=== PATIENT | female | born 1940 | race Caucasian/White ===

== ENCOUNTER 2017-05-25 19:06 | Emergency (ER) | payer MEDICARE, OTHER ==
[~2017-05-25] VITALS: Ht 170.2 cm; Wt 60.0 kg
[2017-05-25 19:14] VITALS: BP 184/85; PULSE 82; RESP 18; TEMP 98.3; O2SAT 96
[2017-05-25] MEDS ORDERED: SODIUM CHLOR 0.9% 1000 ML INJ 1,000 ML IV ONE (19:19)
[2017-05-25] MEDS ORDERED: LEVO.05 PO (19:20)
[2017-05-25] MEDS ORDERED: LISI10TA3 PO (19:20)
[2017-05-25 19:21] VITALS: RESP 18; O2SAT 96
[2017-05-25] MEDS ORDERED: SODIUM CHLORIDE 0.9% FLUSH 10 ML FLUSH IVF PRN (19:30)
--- NOTE | 2017-05-25 19:40 | PD ---
HPI Chief Complaint: Fall Time Seen by Provider: 19:14 Travel History International Travel<30 days: No Contact w/Intl Traveler<30days: No Traveled to known affect area: No History of Present Illness HPI 76-year-old female presents the emergency department status post trip and fall with abrasion and mild contusion to the forehead with no acute loss of consciousness, followed by an episode of syncope several minutes later after the patient tried to get up. Patient was brought in by ambulance with c-collar on. She is alert and oriented 3. She is not complaining of headache, dizziness, or other symptoms at this time. EKG and readings in the ambulance showed 1 PVC, and our EKG here showed an incomplete right bundle branch block and left anterior fascicular block. Patient denies previous cardiac history. Patient denies chest pain or shortness of breath at this time. Patient states she's had similar episodes in the past after falling and hitting her head with secondary syncope several minutes later. She has a history of vasovagal syncope in the past by her own report. Patient has not been seen here at [facility] prior to this visit. Patient states she takes thyroid medication and lisinopril. She is allergic to sulfa. [facility] Past Medical History Hypertension: Yes Thyroid Disease: Yes Tetanus Vaccination: > 5 Years Influenza Vaccination: Yes ?: Not Past Surgical History Endocrine Surgery: Yes (PARTIAL THYROIDECTOMY) Social History Alcohol Use: No Tobacco Use: No Substance Use: No Allergies-Medications (Allergen,Severity, Reaction): Coded Allergies: Sulfa (Sulfonamide Antibiotics) (Verified Allergy, Unknown, 05/25/17) Reported Meds & Prescriptions Reported Meds & Active Scripts Active Reported Synthroid (Levothyroxine Sodium) 50 Mcg Tab 50 Mcg PO DAILY Lisinopril 10 Mg Tab 10 Mg PO DAILY Review of Systems Except as stated in HPI: all other systems reviewed are Neg General / Constitutional: No: Fever Eyes: No: Visual changes HENT: No: Headaches, Vertigo, Lightheadedness, Sore Throat, Rhinitis, Rhinorrhea, Congestion, Nosebleed, Neck Stiffness, Neck Pain, Dental Difficulties, Ear Discharge, Earache Cardiovascular: Positive: Syncope, No: Chest Pain or Discomfort, Palpitations, Irregular Rhythm, Tachycardia, Diaphoresis, Dyspnea on exertion, Edema Respiratory: No: Shortness of Breath Gastrointestinal: No: Abdominal Pain Genitourinary: No: Dysuria Musculoskeletal: No: Pain Skin: Positive Lesions (abrasions to the forehead), No Rash Neurologic: No: Weakness Psychiatric: No: Depression Endocrine: No: Polydipsia Hematologic/Lymphatic: No: Easy Bruising Physical Exam Narrative GENERAL: Patient is alert and oriented 3. SKIN: Warm and dry. Patient has superficial abrasions and contusion to the central middle forehead and bridge of the nose. No lacerations noted. HEAD: Mild tenderness over the contused area of the forehead otherwise unremarkable EYES: Pupils equal and round. No scleral icterus. No injection or drainage. Normal ocular motions bilaterally. No nystagmus. ENT: No nasal bleeding or discharge. Mucous membranes pink and moist. No dental injury. Pharynx is clear. Airway is patent. NECK: Trachea midline. No bony tenderness or step-off. Range of motion is full and supple although Dr. Dukes recommends CT scan CARDIOVASCULAR: Regular rate and rhythm. No murmurs gallops or rubs appreciated. RESPIRATORY: No accessory muscle use. Clear to auscultation. Breath sounds equal bilaterally. GASTROINTESTINAL: Abdomen soft, non-tender, nondistended. Hepatic and splenic margins not palpable. MUSCULOSKELETAL: Extremities without clubbing, cyanosis, or edema. No obvious deformities. No obvious injuries noted. NEUROLOGICAL: Awake and alert. No obvious cranial nerve deficits. Motor grossly within normal limits. Five out of 5 muscle strength in the arms and legs. Normal speech. PSYCHIATRIC: Appropriate mood and affect; insight and judgment normal. Data Data Last Documented VS Vital Signs Date Time Temp Pulse Resp B/P (MAP) Pulse Ox O2 Delivery O2 Flow Rate FiO2 05/25/17 19:21 18 96 Room Air 05/25/17 19:16 83 05/25/17 19:14 98.3 184/85 (118) Orders Orders Electrocardiogram (05/25/17 19:19) Complete Blood Count With Diff (05/25/17 19:19) Comprehensive Metabolic Panel (05/25/17 19:19) Magnesium (Mg) (05/25/17 19:19) Ckmb (Isoenzyme) Profile (05/25/17 19:19) Troponin I (05/25/17 19:19) Act Partial Throm Time (Ptt) (05/25/17 19:19) Prothrombin Time / Inr (Pt) (05/25/17 19:19) Ct Brain W/O Iv Contrast(Rout) (05/25/17 19:19) Ecg Monitoring (05/25/17 19:19) Iv Access Insert/Monitor (05/25/17 19:19) Oximetry (05/25/17 19:19) Sodium Chloride 0.9% Flush (Ns Flush) (05/25/17 19:30) Sodium Chlor 0.9% 1000 Ml Inj (Ns 1000 M (05/25/17 19:19) Orthostatic Vital Signs (05/25/17 19:19) Ct Cerv Spine W/O Contrast (05/25/17 19:24) CKMB (05/25/17 19:20) CKMB% (05/25/17 19:20) Ed Discharge Order (05/25/17 20:46) Labs Laboratory Tests Test 05/25/17 19:20 White Blood Count 8.0 TH/MM3 Red Blood Count 4.31 MIL/MM3 Hemoglobin 14.0 GM/DL Hematocrit 41.2 % Mean Corpuscular Volume 95.6 FL Mean Corpuscular Hemoglobin 32.6 PG Mean Corpuscular Hemoglobin Concent 34.1 % Red Cell Distribution Width 12.5 % Platelet Count 244 TH/MM3 Mean Platelet Volume 8.2 FL Neutrophils (%) (Auto) 63.2 % Lymphocytes (%) (Auto) 27.8 % Monocytes (%) (Auto) 5.8 % Eosinophils (%) (Auto) 2.9 % Basophils (%) (Auto) 0.3 % Neutrophils # (Auto) 5.1 TH/MM3 Lymphocytes # (Auto) 2.2 TH/MM3 Monocytes # (Auto) 0.5 TH/MM3 Eosinophils # (Auto) 0.2 TH/MM3 Basophils # (Auto) 0.0 TH/MM3 CBC Comment DIFF FINAL Differential Comment Prothrombin Time 10.9 SEC Prothromb Time International Ratio 1.0 RATIO Activated Partial Thromboplast Time 25.0 SEC Blood Urea Nitrogen 13 MG/DL Creatinine 0.67 MG/DL Random Glucose 127 MG/DL Total Protein 6.6 GM/DL Albumin 3.6 GM/DL Calcium Level 9.2 MG/DL Magnesium Level 1.9 MG/DL Alkaline Phosphatase 53 U/L Aspartate Amino Transf (AST/SGOT) 26 U/L Alanine Aminotransferase (ALT/SGPT) 22 U/L Total Bilirubin 0.3 MG/DL Sodium Level 139 MEQ/L Potassium Level 3.5 MEQ/L Chloride Level 106 MEQ/L Carbon Dioxide Level 25.1 MEQ/L Anion Gap 8 MEQ/L Estimat Glomerular Filtration Rate 86 ML/MIN Total Creatine Kinase 140 U/L Creatine Kinase MB 5.0 NG/ML Troponin I 0.02 NG/ML MDM Medical Decision Making Medical Screen Exam Complete: Yes Emergency Medical Condition: Yes Differential Diagnosis Trip and fall. Contusion. Vasovagal syncope. Intracranial bleed. Possible new EKG changes. Electrolyte imbalance. Head injury. Concussion syndrome Narrative Course Patient is medically stable at time of exam. CT scan of the head and neck are ordered. Labs ordered including CBC, CMP, cardiac panel, urinalysis. IV access is obtained patient is given 1000 mL of normal saline bolus. Orthostatic vital signs are ordered. Head CT and neck CT are both negative for acute process per radiologist. EKG shows sinus rhythm with first degree AV block with possible left atrial enlargement, incomplete right srinivasa block as well as left anterior fascicular block. CBC is unremarkable. CMP is normal except for random glucose of 127, and first troponin is 0.02. Patient is discussed with Dr. Dukes, who is concerned about the patient's EKG changes in the presence of syncope, and recommends admission for further evaluation. I discussed the findings and recommendations with the patient chooses to discontinue medical care at this time and leave AMA. Patient is recommended to follow with her primary care physician in the morning , and she was given a photocopy of her EKG to take with her. Diagnosis Primary Impression: Syncope and collapse Additional Impressions: Fall (on)(from) sidewalk curb, initial encounter Bundle branch block, bilateral Referrals: Primary Care Physician Patient Instructions: Concussion (ED), General Instructions Additional Instructions: Head CT and neck CT are both negative for acute process per radiologist. EKG shows sinus rhythm with first degree AV block with possible left atrial enlargement, incomplete right srinivasa block as well as left anterior fascicular block. CBC is unremarkable. CMP is normal except for random glucose of 127, and first troponin is 0.02. Patient is discussed with Dr. Dukes, who is concerned about the patient's EKG changes in the presence of syncope, and recommends admission for further evaluation. I discussed the findings and recommendations with the patient chooses to discontinue medical care at this time and leave AMA. Patient is recommended to follow with her primary care physician in the morning , and she was given a photocopy of her EKG to take with her. Disposition: 07 AGAINST MEDICAL ADVICE Condition: Stable Javon Martínez May 25, 2017 19:40
[2017-05-25 19:58] LABS: AUTOMATED NEUTROPHIL # 5.1 TH/MM3 (1.8-7.7); BASOPHIL % 0.3 % (0.0-2.0); EOSINOPHIL # 0.2 TH/MM3 (0-0.4); EOSINOPHIL % 2.9 % (0.0-4.0); HEMATOCRIT 41.2 % (35.0-46.0); HEMO FLAGS DIFF FINAL; LYMPH % 27.8 % (9.0-44.0); LYMPHOCYTE # 2.2 TH/MM3 (1.0-4.8); MEAN CELL VOLUME 95.6 FL (80.0-100.0); MEAN CORPUSCULAR HEMOGLOBIN 32.6 PG (27.0-34.0); MEAN CORPUSCULAR HGB CONC 34.1 % (32.0-36.0); MONO % 5.8 % (0.0-8.0); NEUT % 63.2 % (16.0-70.0); PLATELET COUNT 244 TH/MM3 (150-450); RED BLOOD COUNT 4.31 MIL/MM3 (4.00-5.30); RED CELL DISTRIBUTION WIDTH 12.5 % (11.6-17.2)
--- NOTE | 2017-05-25 19:58 | RADRPT ---
EXAM DATE/TIME: 05/25/2017 19:29 [facility] COMPARISON: No previous studies available for comparison. INDICATIONS : Trauma; fall. RADIATION DOSE: 56.35 CTDIvol (mGy) MEDICAL HISTORY : Hypertension. SURGICAL HISTORY : partial thyroidectomy ENCOUNTER: Initial ACUITY: 1 day PAIN SCALE: 5/10 LOCATION: cranial TECHNIQUE: Multiple contiguous axial images were obtained of the head. Using automated exposure control and adj ustment of the mA and/or kV according to patient size, radiation dose was kept as low as reasonably a chievable to obtain optimal diagnostic quality images. DICOM format image data is available electro nically for review and comparison. FINDINGS: CEREBRUM: The ventricles are normal for age. No evidence of midline shift, mass lesion, hemorrhage or acute in farction. No extra-axial fluid collections are seen. POSTERIOR FOSSA: The cerebellum and brainstem are intact. The 4th ventricle is midline. The cerebellopontine angle i s unremarkable. EXTRACRANIAL: The visualized portion of the orbits is intact. SKULL: The calvaria is intact. No evidence of skull fracture. CONCLUSION: 1. No acute findings. Mild white matter ischemic change. Shaan Lynch MD on May 25, 2017 at 19:54 Board Certified Radiologist. This report was verified electronically.
--- NOTE | 2017-05-25 20:01 | RADRPT ---
EXAM DATE/TIME: 05/25/2017 19:31 [facility] COMPARISON: No previous studies available for comparison. INDICATIONS : Trauma; fall. RADIATION DOSE: 30.96 CTDIvol (mGy) MEDICAL HISTORY : Hypertension. SURGICAL HISTORY : partial thyroidectomy ENCOUNTER: Initial ACUITY: 1 day PAIN SCALE: 5/10 LOCATION: neck TECHNIQUE: Volumetric scanning of the cervical spine was performed. Multiplanar reconstructions in the sagittal, coronal and oblique axial planes were performed. Using automated exposure control and adjustment o f the mA and/or kV according to patient size, radiation dose was kept as low as reasonably achievable to obtain optimal diagnostic quality images. DICOM format image data is available electronically f or review and comparison. FINDINGS: VERTEBRAE: Normal vertebral body height. ALIGNMENT: No evidence of subluxation. C2-C3: The bony spinal canal is normal in size. No evidence of disc bulge or herniation. The neural forami na are bilaterally patent. C3-C4: The bony spinal canal is normal in size. No evidence of disc bulge or herniation. The neural forami na are bilaterally patent. C4-C5: The bony spinal canal is normal in size. No evidence of disc bulge or herniation. The neural forami na are bilaterally patent. C5-C6: The bony spinal canal is normal in size. No evidence of disc bulge or herniation. The neural forami na are bilaterally patent. C6-C7: The bony spinal canal is normal in size. No evidence of disc bulge or herniation. The neural forami na are bilaterally patent. C7-T1: The bony spinal canal is normal in size. No evidence of disc bulge or herniation. The neural forami na are bilaterally patent. CONCLUSION: Normal examination for a patient of this age. Shaan Lynch MD on May 25, 2017 at 19:56 Board Certified Radiologist. This report was verified electronically.
[2017-05-25 20:03] LABS: ALT (GPT) 22 U/L (10-53)
[2017-05-25 20:07] LABS: ALKALINE PHOSPHATASE 53 U/L (45-117); CREATINE KINASE 140 U/L (26-192); TOTAL BILIRUBIN ADULT 0.3 MG/DL (0.2-1.0)
[2017-05-25 20:14] LABS: ANION GAP 8 MEQ/L (5-15); AST (GOT) 26 U/L (15-37); BICARBONATE 25.1 MEQ/L (21.0-32.0); BLOOD UREA NITROGEN 13 MG/DL (7-18); CHLORIDE 106 MEQ/L (98-107); GLOMERULAR FILTRATION RATE 86 ML/MIN (>89); MAGNESIUM 1.9 MG/DL (1.5-2.5); POTASSIUM 3.5 MEQ/L (3.5-5.1); SODIUM (NA) 139 MEQ/L (136-145)
[2017-05-25 20:26] LABS: PROTHROMBIN TIME - PATIENT 10.9 SEC (9.8-11.6)
--- NOTE | 2017-05-26 10:41 | EKG ---
Date Performed: 05/25/2017 Time Performed: 19:15:09 PTAGE: 76 years EKG: Sinus rhythm WITH FIRST DEGREE AV BLOCK POSSIBLE LEFT ATRIAL ENLARGEMENT INCOMPLETE RIGHT BUNDLE BRANCH BLOCK LEF T ANTERIOR FASCICULAR BLOCK ABNORMAL ECG INTERPRETATION BASED ON A DEFAULT AGE OF 41 YEARS NO PREVIOUS TRACING DOCTOR: Rusty Herman Interpretating Date/Time 05/26/2017 10:38:01
== END 2017-05-25 21:00 | disposition left against medical advice (07) ==
LOC: NEPE 19:06
DX: R55 Syncope and collapse (principal); S00.83XA Contusion of other part of head, initial encounter; W01.0XXA Fall on same level from slipping, tripping and stumbling without subsequent striking against object, initial encounter; Y93.01 Activity, walking, marching and hiking; Y92.480 Sidewalk as the place of occurrence of the external cause; I45.2 Bifascicular block; I10 Essential (primary) hypertension; E07.9 Disorder of thyroid, unspecified
CPT/HCPCS: 70450; 72125; 80053; 82550; 82552; 83735; 84484; 85025; 85610; 85730; 93005; 99285; J7030